=== PATIENT | female | born 1985 | race Caucasian/White ===

== ENCOUNTER 2019-01-17 20:53 | Emergency (ER) | payer OTHER ==
[~2019-01-17] VITALS: Ht 177.8 cm; Wt 99.8 kg
[2019-01-17] MEDS ORDERED: CENTANY30 GM TOP (21:36)
[2019-01-17] MEDS ORDERED: KEFLEX500 M1 PO (21:53)
[2019-01-17 22:18] VITALS: BP 156/98
== END 2019-01-17 22:18 | disposition home or self-care (01) ==
LOC: M.ERS 20:53
DX: S61.211A Laceration without foreign body of left index finger without damage to nail, initial encounter (principal); E11.9 Type 2 diabetes mellitus without complications; W25.XXXA Contact with sharp glass, initial encounter; Y93.89 Activity, other specified; Y92.89 Other specified places as the place of occurrence of the external cause; Y99.8 Other external cause status